=== PATIENT | male | born 1975 | race Caucasian/White ===

== ENCOUNTER 2018-07-05 11:49 | Emergency (ER) | payer OTHER ==
[~2018-07-05] VITALS: Ht 185.4 cm; Wt 115.7 kg
[~2018-07-05 11:49] MED LIST: CRESTOR10 MG PO
[2018-07-05] MEDS ORDERED: HYDROCODONE/APAP 10MG-325MG TAB PO ONE (12:15)
--- NOTE | 2018-07-05 13:28 | Diagnostic Imaging Report ---
EXAM: Scrotal Ultrasound INDICATION: Pain COMPARISON: None TECHNIQUE: Transverse and longitudinal images were obtained of the scrotum with grayscale imaging, color Doppler and spectral waveform analysis. FINDINGS: Right testis: Size: measures 4.8 x 2.7 x 4.5 cm, normal in size. Echogenicity: Normal Mass/Cysts: None Left testis: Size: measures 5.1 x 2.8 x 3.8 cm, normal in size. Echogenicity: Normal Mass/Cysts: None Epididymis: Normal in size without increased vascularity. Apparent increase in vascularity adjacent to the right epidiymis is felt to be related to adjacent varicocele. There are right sided epididymal cysts, the largest measuring up to 0.5 cm and a smaller one inferiorly measuring up to 0.4 cm. Extratesticular: Masses: None Fluid collections: Small right hydrocele. Varicocele: Bilateral varicocele are noted, increased flow is demonstrated on Valsalva maneuver Doppler: Normal arterial flow to both testes and symmetrical flow on color Doppler evaluation is seen. No evidence of testicular torsion. IMPRESSION: No sonographic evidence of testicular torsion. Bilateral varicoceles. Small right hydrocele. Incidental right epididymal cysts. Signed by: Dr. Delvin Lay MD on 07/05/2018 1:24 PM
[2018-07-05] MEDS ORDERED: KETOROLAC TROMETHAMINE 60 MG/2 ML VIAL IM ONE (15:00)
[2018-07-05 15:47] LABS: BILIRUBIN,URINE NEGATIVE (NEGATIVE); CLARITY,URINE CLEAR (CLEAR); COLOR,URINE YELLOW (YELLOW); KETONES,URINE NEGATIVE (NEGATIVE); LEUKOCYTE ESTERASE ,URINE NEGATIVE (NEGATIVE); NITRITE,URINE NEGATIVE (NEGATIVE); PROTEIN,URINE DIPSTICK NEGATIVE (NEGATIVE); URINE UROBILINOGEN 0.2 mg/dL (0.2 - 1)
[2018-07-05 15:56] LABS: BACTERIA,URINE RARE /HPF
== END 2018-07-05 16:42 | disposition home or self-care (01) ==
LOC: ER 11:49
DX: N50.811 Right testicular pain (principal); N43.3 Hydrocele, unspecified; I86.1 Scrotal varices; K21.9 Gastro-esophageal reflux disease without esophagitis
CPT/HCPCS: 76870; 81001; 93976; 99284; J1885

== ENCOUNTER → 2022-01-11 | Day surgery (SDC) | payer BC, OTHER ==
[~2022-01-11] MED LIST changes: +ADDERALL 20 MG20 MG PO; +BENTYL PO; +FENTANYL CITRATE/PF 100MCG/2 ML INJ ONE; +HYOSCYAMINE SULFATE 0.5 MG/ML INJ ONE; +LIDOCAINE HCL 2% LOCAL INJ 5 ML SDV VIAL INJ ONE; +MIDAZOLAM HCL 2 MG/2 ML VIAL ONE; +MULTI-VITAMIN1 EACH PO; +PANTOPRAZOLE SO40 MG PO; +PROPOFOL IV EMULSION 10 MG/ML 20 ML VIAL ONE; +PROTONIX20 MG PO
[2022-01-11 10:40] VITALS: BP 112/75
== END | disposition home or self-care (01) ==
LOC: OR 08:35 → MERGE 08:35
PROVIDERS: ATTEND Internal Medicine Gastroenterology
DX: Z09 Encounter for follow-up examination after completed treatment for conditions other than malignant neoplasm (principal); D12.0 Benign neoplasm of cecum; K58.9 Irritable bowel syndrome, unspecified; K64.8 Other hemorrhoids; K29.70 Gastritis, unspecified, without bleeding; K21.9 Gastro-esophageal reflux disease without esophagitis; Z71.3 Dietary counseling and surveillance; E66.9 Obesity, unspecified; R03.0 Elevated blood-pressure reading, without diagnosis of hypertension; E78.5 Hyperlipidemia, unspecified; F98.8 Other specified behavioral and emotional disorders with onset usually occurring in childhood and adolescence; Z01.810 Encounter for preprocedural cardiovascular examination; Z01.812 Encounter for preprocedural laboratory examination; Z20.822 Contact with and (suspected) exposure to COVID-19; Z79.899 Other long term (current) drug therapy; Z68.36 Body mass index [BMI] 36.0-36.9, adult; Z86.16 Personal history of COVID-19
CPT/HCPCS: 45380; 45385; 93005; J1980; J2001; J2250; J2704; J3010; U0002; 45378